=== PATIENT | male | born 1970 | race Caucasian/White ===

== ENCOUNTER 2018-01-05 19:55 | Emergency (ER) | END 2018-01-06 00:17 | disposition home or self-care (01) ==

== ENCOUNTER 2018-11-13 17:26 | Emergency (ER) | payer OTHER ==
[~2018-11-13] VITALS: Ht 152.4 cm; Wt 68.4 kg
[~2018-11-13 17:26] MED LIST: CLIN300C10 PO; IBUP-1542 PO
[2018-11-13 17:35] VITALS: Ht 152.4 cm; Wt 68.4 kg
[2018-11-13] MEDS ORDERED: CIPR7.5D RIGHT EAR (18:43)
[2018-11-13] MEDS ORDERED: ACET500C5 PO (18:43)
[2018-11-13] MEDS ORDERED: HC30CR25 TOP (18:43)
--- NOTE | 2018-11-13 18:56 | ERD ---
ER Documentation Chief Complaint Chief Complaint cant hear from the right ear x 4 months; rahes in lower extremities HPI This is a 48-year-old male patient who presents emergency room with complaint of itching, drainage, foul smell from right ear increasing x4 months. Patient also has multiple small lesions to his bilateral legs. No fever, no headache, no rhinorrhea. ROS All systems reviewed and are negative except as per history of present illness. Medications Home Meds Active Scripts Hydrocortisone* Topical (Hydrocortisone* Topical) 2.5%-28.3 Gm Cream..g., 1 APPLIC TOP BID for dermatitis for 14 Days, #15 G Prov:JAYDA MAGDALENO NP 11/13/18 Ciprofloxacin Hcl/Dexameth (Ciprodex Otic Suspension) 7.5 Ml Drops.susp, 4 DROP RIGHT EAR BID for otitis externa for 7 Days, #7.5 ML Prov:JAYDA MAGDALENO NP 11/13/18 Acetaminophen* (Tylophen*) 500 Mg Capsule, 2 CAP PO Q8H PRN for PAIN AND OR ELEVATED TEMP, #20 CAP Prov:JAYDA MAGDALENO NP 11/13/18 Clindamycin Hcl* (Clindamycin Hcl*) 300 Mg Capsule, 300 MG PO TID for 10 Days, CAP Prov:JIMMY,KYREE C 01/06/18 Ibuprofen* (Motrin*) 600 Mg Tab, 600 MG PO Q6, #30 TAB Prov:KYREE MARQUEZ C 01/06/18 Allergies Allergies: Coded Allergies: amoxicillin (Verified Allergy, Unknown, 11/13/18) PMhx/Soc One kidney Medical and Surgical Hx: pt denies Medical Hx, pt denies Surgical Hx Hx Alcohol Use: Yes Hx Substance Use: No Hx Tobacco Use: No Smoking Status: Never smoker Physical Exam Vitals Vital Signs Date Temp Pulse Resp B/P (MAP) Pulse Ox O2 O2 Flow FiO2 Time Delivery Rate 11/13/18 98.8 69 24 136/81 96 17:35 (99) Physical Exam Const: No acute distress Head: Atraumatic Eyes: Normal Conjunctiva, PERRL ENT: Pharynx pink, moist, no lesions or exudate, no nasal congestion or drainage. Left TM clear, right TM obstructed by purulent slough and external canal, no pre-or post auricular tenderness, no redness or swelling of auricle Neck: Full range of motion. No meningismus. No lymphadenopathy Resp: Clear to auscultation bilaterally Cardio: Regular rate and rhythm, no murmurs Abd: Soft, non tender, non distended. Normal bowel sounds Skin: No petechiae or rashes, multiple small circular scaly patch lesions to BL LE, no erythema Neur: Awake and alert, CNI-XII intact, equal smile, clear speech Psych: Normal Mood and Affect Procedures/MDM PROCEDURES/MDM PROCEDURES: Ear lavage to right ear with normal saline. After lavage of copious saline right TM visible, opaque, no redness or bulging of TM, thickened external canal with yellow slough MDM: This is a 48-year-old male patient presents emergency room with complaint of itching and drainage from right ear as well as decreased hearing, and multiple small scaly patches to his bilateral lower extremities. Patient states [place] works [place] a equipment [place] exposure to chemicals. The small scaly patches on his legs look like either a contact dermatitis or an eczema. Most likely these lesions are due to a contact dermatitis due to exposure of chemicals at work as the lesions are only above his boots and below his knees, no scaly plaques on knee or elbow flexors or above his knees. Patient has been instructed to protect his lower extremities while using chemicals. There is no redness, swelling, signs of infection, low suspicion for MRSA or other infectious lesions. There is external otitis media to the right ear. Patient has been instructed on use of eardrops and need for reevaluation of eardrum after use of antibiotic eardrop. Patient has been instructed that he may need referral to a specialist and is important that he establishes care with primary care provider. He has been instructed on signs and symptoms of worsening of condition including increased drainage, headache, neck pain, development of redness to face. I have a low suspicion for meningitis as the patient is not toxic appearing, no nuchal rigidity, and no altered mental status. Exam and w/u not consistent w/ deep space infection of the face, throat, or mastoids. No evidence of impending airway compromise or meningitis. DISPOSITION and PLAN: RX: Hydrocortisone, Ciprodex, Tylenol The patient has been discharge home to follow-up with community physician. Departure Diagnosis: Primary Impression: Dermatitis Additional Impression: Otitis externa Otitis externa type: unspecified type Chronicity: acute Laterality: right Qualified Codes: H60.501 - Unspecified acute noninfective otitis externa, right ear Condition: Stable Patient Instructions: Atopic Dermatitis (Eczema), External Ear Infection (Adult) [facility] Usshikha se sheehan hecho un examen mdico de control que le indica que no est en sylvia condicin que requiera tratamiento urgente en el Departamento de Emergencia. Un estudio ms profundo y el tratamiento de kingsley condicin pueden esperar sin ningn riesgo hasta que usted sea atendida/o en el consultorio de kingsley mdico o sylvia clnica. Es responsabilidad suya arreglar sylvia jhony para el seguimiento del bonifacio. MANEJO DE CONDICIONES NO URGENTES EN EL FUTURO 1) Si usted tiene un mdico de atencin primaria: Usted debera llamar a kingsley mdico de atencin primaria antes de venir al departamento de emergencia. Despus de las horas de consultorio, kingsley doctor o kingsley asociado/a est disponible por telfono. El mdico o enfermero de ly en el servicio telefnico puede asesorarle por adilia medio para atender el problema, o bonifacio contrario se puede programar sylvia jhony. 2) Si usted no tiene un mdico de atencin primaria: Llame al mdico o clnica de referencia que aparece abajo shyam las horas de c onsultorio para hacer sylvia jhony para que le vean. CLINICAS: [facility] [phone] [facility] [phone] [address] [facility] [phone] [address] [facility]. [facility] [phone] [place] [id number] [phone] [facility] [phone] [address] [facility] () Homero se sheehan hecho un examen mdico de control que le indica que no est en sylvia condicin que requiera tratamiento urgente en el Departamento de Emergencia. Un estudio ms profundo y el tratamiento de kingsley condicin pueden esperar sin ningn riesgo hasta que usted sea atendida/o en el consultorio de kingsley mdico o sylvia clnica. Es responsabilidad suya arreglar sylvia jhony para el seguimiento del bonifacio. MANEJO DE CONDICIONES NO URGENTES EN EL FUTURO 1) Si usted tiene un mdico de atencin primaria: Usted debera llamar a kingsley mdico de atencin primaria antes de venir al departamento de emergencia. Despus de las horas de consultorio, kingsley doctor o kingsley asociado/a est disponible por telfono. El mdico o enfermero de ly en el servicio telefnico puede asesorarle por adilia medio para atender el problema, o bonifacio contrario se puede programar sylvia jhony. 2) Si usted no tiene un mdico de atencin primaria: Llame al mdico o condado institucions de referencia que aparece abajo shyam l as horas de consultorio para hacer sylvia jhony para que le vean. SI USTED NO PUEDE PAGAR PARA PERRY UN MEDICO puede ir a: [facility] [address] [place] [address] [facility] [address] [place] [address] [facility] [address] [place] [address] [address] [facility] [address] [place] [address] Additional Instructions: Thank you very much for allowing us to participate in your care. Your health and safety is our top priority at [facility]. Call your primary care doctor TOMORROW for an appointment during the next 2-4 days and bring all the information and medications prescribed. Have prescriptions filled and follow precisely the directions on the label. If the symptoms get worse and your provider is unavailable, return to the Emergency Department immediately. JAYDA MAGDALENO NP Nov 13, 2018 18:56
[2018-11-13 19:18] VITALS: BP 150/90; PULSE 69; RESP 18
== END 2018-11-13 19:11 | disposition home or self-care (01) ==
LOC: FTE 17:26
DX: H60.501 Unspecified acute noninfective otitis externa, right ear (principal); L30.9 Dermatitis, unspecified
CPT/HCPCS: 99283

== ENCOUNTER 2019-01-11 16:55 | Emergency (ER) | payer OTHER ==
[~2019-01-11] VITALS: Ht 165.1 cm; Wt 67.4 kg
[~2019-01-11 16:55] MED LIST changes: +ACET500C5 PO; +CETI10CA PO; +CIPR7.5D RIGHT EAR; +HC30CR25 TOP; +TRIA15CR55 TOP
[2019-01-11 16:59] VITALS: BP 137/85; PULSE 89; RESP 18; Ht 165.1 cm; Wt 67.4 kg
== END 2019-01-11 17:33 | disposition home or self-care (01) ==
LOC: FTE 16:55
DX: L30.9 Dermatitis, unspecified (principal); R20.2 Paresthesia of skin
CPT/HCPCS: 99283